=== PATIENT | male | born 1975 | race Hispanic/Latino ===

== ENCOUNTER 2023-03-18 09:43 | Inpatient (IN) | payer SELFPAY ==
[2023-03-18 10:17] LABS: #Basophils 0.1 thou/uL (0.0-0.2); #Eosinphils 0.3 thou/uL (0.0-0.7); #Monocytes 1.4 thou/uL (0.11-0.59); #Neutrophils 11.9 thou/uL (1.40-6.50); %Basophils 0.5 % (0.0-1.0); %Eosinophils 1.8 % (0.0-10.0); %Lymphocytes 9.6 % (21.0-51.0); %Neutrophils 78.6 % (42.0-75.0); Hemoglobin 11.6 g/dL (14.0-18.0); Mean Corpuscular HGB CONC 34.1 g/dL (32.0-36.0); Mean Corpuscular Hemoglobin 32.4 pg (27.0-31.0); Mean Platelet Volume 8.8 fL (7.4-10.4); Platelet Count 376 10x3/uL (130-400); RBC Distribution Width 11.7 % (11.5-14.5); Red Blood Cell (RBC) Count 3.58 mill/uL (4.70-6.10); White Blood Cell (WBC) Count 15.2 10x3/uL (4.8-10.8)
[2023-03-18] MEDS ORDERED: Acetaminophen 500 MG TAB ONE (10:28)
[2023-03-18 10:44] LABS: ALT (SGPT) 15 U/L (8-55); AST (SGOT) 13 U/L (5-34); Albumin 3.6 g/dL (3.5-5.0); Alkaline Phosphatase 79 U/L (40-110); Anion Gap 12 mmol/L (10-20); BUN (Urea Nitrogen) 8 mg/dL (8.9-20.6); Bilirubin, Total 0.5 mg/dL (0.2-1.2); Calc. Creatinine Clearance 0 mL/min (70-130); Calcium 9.4 mg/dL (7.8-10.44); Carbon Dioxide 25 mmol/L (22-29); Chloride 103 mmol/L (98-107); Estimated GFR 107; Globulin 4.2 g/dL (2.4-3.5); Glucose 205 mg/dL (70-105); Lipase 15 U/L (8-78); Potassium 4.4 mmol/L (3.5-5.1); Protein, Total 7.8 g/dL (6.0-8.3); Sodium 136 mmol/L (136-145)
[2023-03-18] MEDS ORDERED: cefTRIAXone (ROCEPHIN) 2 GM VIAL ONE (12:33)
[2023-03-18 12:49] LABS: HIV (1/2) Antibody/Antigen Non-Reactive (NonReactive); HIV 1/2 INDEX 0.11 S/CO (<1.00)
[2023-03-18] MEDS ORDERED: Ondansetron PF 4 MG/2 ML Vial IVP PRN (13:13)
[2023-03-18] MEDS ORDERED: Ondansetron ODT 4 MG TAB PO PRN (13:13)
[2023-03-18] MEDS ORDERED: Dextrose 50% Abboject 50 ML SYRINGE ONE (13:29)
[2023-03-18] MEDS ORDERED: Azithromycin 500 MG in Sodium Chloride 0.9% 250 ML 250 ML IVPB SCH (14:00)
[2023-03-18] MEDS ORDERED: Azithromycin 500 MG VIAL ONE (14:22)
[2023-03-18] MEDS ORDERED: Iopamidol-370 76% 500 ML MDV (1 ML CHARGE) ONE (15:00)
[2023-03-18] MEDS: Sodium Chloride 0.9% 1,000 ML IV SCH (15:45)
[2023-03-18 15:59] LABS: SARS-CoV-2 NAA Rapid Test Not Detected (NotDetected)
[2023-03-18 16:39] VITALS: BMI 30.4
[2023-03-19] MEDS: Sodium Chloride 0.9% 1,000 ML IV SCH ×2 (02:35→14:26)
[2023-03-19 06:50] LABS: #Basophils 0.1 thou/uL (0.0-0.2); #Eosinphils 0.2 thou/uL (0.0-0.7); #Monocytes 1.2 thou/uL (0.11-0.59); #Neutrophils 10.5 thou/uL (1.40-6.50); %Basophils 0.5 % (0.0-1.0); %Eosinophils 1.7 % (0.0-10.0); %Lymphocytes 12.5 % (21.0-51.0); %Monocytes 8.5 % (0.0-10.0); %Neutrophils 76.2 % (42.0-75.0); Hemoglobin 12.4 g/dL (14.0-18.0); Mean Corpuscular HGB CONC 32.7 g/dL (32.0-36.0); Mean Corpuscular Hemoglobin 31.5 pg (27.0-31.0); Mean Corpuscular Volume 96.2 fl (78.0-98.0); Mean Platelet Volume 8.8 fL (7.4-10.4); Platelet Count 451 10x3/uL (130-400); RBC Distribution Width 11.5 % (11.5-14.5); Red Blood Cell (RBC) Count 3.94 mill/uL (4.70-6.10); White Blood Cell (WBC) Count 13.8 10x3/uL (4.8-10.8)
[2023-03-19 07:22] LABS: Anion Gap 14 mmol/L (10-20); BUN (Urea Nitrogen) 7 mg/dL (8.9-20.6); Calc. Creatinine Clearance 134 mL/min (70-130); Calcium 9.3 mg/dL (7.8-10.44); Carbon Dioxide 23 mmol/L (22-29); Chloride 103 mmol/L (98-107); Estimated GFR 108; Glucose 220 mg/dL (70-105); Potassium 3.9 mmol/L (3.5-5.1); Sodium 136 mmol/L (136-145)
[2023-03-19] MEDS: Lisinopril 10 MG TAB PO SCH (07:50)
[2023-03-19] MEDS: metFORMIN 500 MG TAB PO SCH (07:50)
[2023-03-19] MEDS: Cholecalciferol 1,000 UNITS (25 MCG) TAB PO SCH (07:50)
[2023-03-19] MEDS: Atorvastatin Calcium 20 MG TAB PO SCH (07:51)
[2023-03-19] MEDS ORDERED: Insulin Glargine 30 UNITS/0.3 ML VIAL SC SCH (10:00)
[2023-03-19] MEDS: cefTRIAXone\\ROCEPHIN 1 GM in Sodium Chloride 0.9% 100 ML IVPB SCH (12:48)
[2023-03-19] MEDS: Azithromycin 500 MG in Sodium Chloride 0.9% 250 ML 250 ML IVPB SCH (14:25)
[2023-03-19] MEDS ORDERED: Glucagon 1 MG/ML KIT IM PRN (17:15)
[2023-03-19] MEDS ORDERED: HumaLOG 300 UNITS/3 ML VIAL SC PRN (17:15)
[2023-03-19] MEDS ORDERED: Dextrose 50% Abboject 50 ML SYRINGE IVP PRN (17:15)
[2023-03-19] MEDS ORDERED: Dextrose 5% in Water 1,000 ML IV PRN (17:15)
[2023-03-19] MEDS: HumaLOG 300 UNITS/3 ML VIAL SC PRN (17:28)
[2023-03-19] MEDS: Acetaminophen 325 MG TAB PO PRN (20:21)
[2023-03-19] MEDS ORDERED: Ibuprofen 600 MG TAB PO PRN (22:51)
[2023-03-20] MEDS: Sodium Chloride 0.9% 1,000 ML IV SCH (04:19)
[2023-03-20] MEDS: Acetaminophen 325 MG TAB PO PRN ×2 (04:19→11:46)
[2023-03-20] MEDS: Insulin Glargine 30 UNITS/0.3 ML VIAL SC SCH (08:27)
[2023-03-20] MEDS: Lisinopril 10 MG TAB PO SCH (08:28)
[2023-03-20] MEDS: glyBURIDE 5 MG TAB PO SCH (08:29)
[2023-03-20] MEDS: Atorvastatin Calcium 20 MG TAB PO SCH (08:29)
[2023-03-20] MEDS: metFORMIN 500 MG TAB PO SCH (08:29)
[2023-03-20] MEDS: Cholecalciferol 1,000 UNITS (25 MCG) TAB PO SCH (08:30)
[2023-03-20] MEDS: HumaLOG 300 UNITS/3 ML VIAL SC PRN (11:47)
[2023-03-20] MEDS: cefTRIAXone\\ROCEPHIN 1 GM in Sodium Chloride 0.9% 100 ML IVPB SCH (11:48)
[2023-03-20 12:57] LABS: #Basophils 0.1 thou/uL (0.0-0.2); #Eosinphils 0.2 thou/uL (0.0-0.7); %Basophils 0.5 % (0.0-1.0); %Eosinophils 1.9 % (0.0-10.0); %Lymphocytes 11.8 % (21.0-51.0); %Monocytes 8.8 % (0.0-10.0); %Neutrophils 76.5 % (42.0-75.0); Hemoglobin 11.3 g/dL (14.0-18.0); Mean Corpuscular HGB CONC 33.5 g/dL (32.0-36.0); Mean Corpuscular Hemoglobin 32.1 pg (27.0-31.0); Mean Corpuscular Volume 95.7 fl (78.0-98.0); Mean Platelet Volume 8.6 fL (7.4-10.4); Platelet Count 418 10x3/uL (130-400); RBC Distribution Width 11.7 % (11.5-14.5); Red Blood Cell (RBC) Count 3.52 mill/uL (4.70-6.10); White Blood Cell (WBC) Count 11.8 10x3/uL (4.8-10.8)
[2023-03-20 13:06] LABS: Hemoglobin A1c 7.7 % (4.0-6.0)
[2023-03-20] MEDS: Azithromycin 500 MG in Sodium Chloride 0.9% 250 ML 250 ML IVPB SCH (13:10)
[2023-03-20 13:19] LABS: Anion Gap 14 mmol/L (10-20); BUN (Urea Nitrogen) 9 mg/dL (8.9-20.6); Calc. Creatinine Clearance 139 mL/min (70-130); Calcium 9.2 mg/dL (7.8-10.44); Carbon Dioxide 21 mmol/L (22-29); Chloride 104 mmol/L (98-107); Estimated GFR 109; Glucose 156 mg/dL (70-105); Potassium 3.5 mmol/L (3.5-5.1); Sodium 135 mmol/L (136-145)
[2023-03-21] MEDS: Acetaminophen 325 MG TAB PO PRN ×2 (05:16→20:25)
[2023-03-21 07:00] LABS: #Eosinphils 0.2 thou/uL (0.0-0.7); #Neutrophils 8.1 thou/uL (1.40-6.50); %Basophils 0.4 % (0.0-1.0); %Eosinophils 1.5 % (0.0-10.0); %Lymphocytes 10.8 % (21.0-51.0); %Monocytes 9.1 % (0.0-10.0); %Neutrophils 77.7 % (42.0-75.0); Mean Corpuscular HGB CONC 33.3 g/dL (32.0-36.0); Mean Platelet Volume 8.5 fL (7.4-10.4); Platelet Count 442 10x3/uL (130-400); RBC Distribution Width 11.6 % (11.5-14.5); Red Blood Cell (RBC) Count 3.55 mill/uL (4.70-6.10); White Blood Cell (WBC) Count 10.5 10x3/uL (4.8-10.8)
[2023-03-21] MEDS: metFORMIN 500 MG TAB PO SCH (08:58)
[2023-03-21] MEDS: Insulin Glargine 30 UNITS/0.3 ML VIAL SC SCH (08:58)
[2023-03-21] MEDS: Lisinopril 10 MG TAB PO SCH (08:58)
[2023-03-21] MEDS: glyBURIDE 5 MG TAB PO SCH (08:58)
[2023-03-21] MEDS: Atorvastatin Calcium 20 MG TAB PO SCH (08:58)
[2023-03-21] MEDS: Cholecalciferol 1,000 UNITS (25 MCG) TAB PO SCH (08:58)
[2023-03-21] MEDS: cefTRIAXone\\ROCEPHIN 1 GM in Sodium Chloride 0.9% 100 ML IVPB SCH (12:52)
[2023-03-21] MEDS: Azithromycin 500 MG in Sodium Chloride 0.9% 250 ML 250 ML IVPB SCH (14:46)
[2023-03-22] MEDS: Acetaminophen 325 MG TAB PO PRN (04:43)
[2023-03-22 07:09] LABS: #Basophils 0.1 thou/uL (0.0-0.2); #Eosinphils 0.1 thou/uL (0.0-0.7); #Monocytes 1.3 thou/uL (0.11-0.59); #Neutrophils 8.1 thou/uL (1.40-6.50); %Basophils 0.7 % (0.0-1.0); %Eosinophils 1.1 % (0.0-10.0); %Lymphocytes 12.1 % (21.0-51.0); %Monocytes 11.9 % (0.0-10.0); %Neutrophils 73.7 % (42.0-75.0); Hemoglobin 11.3 g/dL (14.0-18.0); Mean Corpuscular HGB CONC 33.7 g/dL (32.0-36.0); Mean Corpuscular Volume 94.9 fl (78.0-98.0); Mean Platelet Volume 8.5 fL (7.4-10.4); Platelet Count 440 10x3/uL (130-400); RBC Distribution Width 11.7 % (11.5-14.5); Red Blood Cell (RBC) Count 3.53 mill/uL (4.70-6.10); White Blood Cell (WBC) Count 10.9 10x3/uL (4.8-10.8)
[2023-03-22] MEDS: glyBURIDE 5 MG TAB PO SCH (08:58)
[2023-03-22] MEDS: Cholecalciferol 1,000 UNITS (25 MCG) TAB PO SCH (08:59)
[2023-03-22] MEDS: Atorvastatin Calcium 20 MG TAB PO SCH (08:59)
[2023-03-22] MEDS: metFORMIN 500 MG TAB PO SCH (08:59)
[2023-03-22] MEDS: Insulin Glargine 30 UNITS/0.3 ML VIAL SC SCH (08:59)
[2023-03-22] MEDS: Lisinopril 10 MG TAB PO SCH (08:59)
[2023-03-22] MEDS: cefTRIAXone\\ROCEPHIN 1 GM in Sodium Chloride 0.9% 100 ML IVPB SCH (12:14)
[2023-03-22 13:26] VITALS: BP 139/88; TEMP 98.8
[2023-03-22] MEDS: Azithromycin 500 MG in Sodium Chloride 0.9% 250 ML 250 ML IVPB SCH (14:15)
== END 2023-03-22 18:09 | disposition home or self-care (01) | DRG 194 ==
LOC: ERS 09:43 → OBSVTOIN 13:12 → T4-A 13:12
PROVIDERS: ADMIT Internal Medicine; ATTEND Family Medicine
PROC: 8E0ZXY6 Isolation (ICD-10-PCS; principal; 2023-03-18)
DX: J18.9 Pneumonia, unspecified organism (principal); J90 Pleural effusion, not elsewhere classified; I10 Essential (primary) hypertension; E11.9 Type 2 diabetes mellitus without complications; E78.5 Hyperlipidemia, unspecified; D64.9 Anemia, unspecified; Z20.822 Contact with and (suspected) exposure to COVID-19; Z79.4 Long term (current) use of insulin; Z79.84 Long term (current) use of oral hypoglycemic drugs; Z79.899 Other long term (current) drug therapy
CPT/HCPCS: 36415; 36416; 71045; 71275; 80048; 80053; 83036; 83605; 83690; 84484; 85025; 87040; 87116; 87206; 87389; 93005; 94760; 96361; 96365; 96366; 96367; 96372; 96376; G0378; J0456; J0696; J1650; J1815; J3490; J7050; J7999; Q9967; U0002

== ENCOUNTER 2023-04-28 15:36 | Inpatient (IN) | payer SELFPAY ==
[~2023-04-28 15:36] MED LIST: Iopamidol 370 76% 100 ML VIAL ONE
[2023-04-28 16:19] LABS: #Eosinphils 0.1 thou/uL (0.0-0.7); #Monocytes 1.2 thou/uL (0.11-0.59); #Neutrophils 7.6 thou/uL (1.40-6.50); %Basophils 0.4 % (0.0-1.0); %Eosinophils 0.9 % (0.0-10.0); %Lymphocytes 14.5 % (21.0-51.0); %Monocytes 11.4 % (0.0-10.0); %Neutrophils 72.2 % (42.0-75.0); Hemoglobin 9.6 g/dL (14.0-18.0); Mean Corpuscular HGB CONC 33.6 g/dL (32.0-36.0); Mean Corpuscular Hemoglobin 29.2 pg (27.0-31.0); Mean Corpuscular Volume 86.9 fl (78.0-98.0); Mean Platelet Volume 8.5 fL (7.4-10.4); Platelet Count 549 10x3/uL (130-400); RBC Distribution Width 12.7 % (11.5-14.5); Red Blood Cell (RBC) Count 3.29 mill/uL (4.70-6.10); White Blood Cell (WBC) Count 10.5 10x3/uL (4.8-10.8)
[2023-04-28 16:30] LABS: Bacteria/HPF None Seen HPF (None Seen); Bilirubin Negative (Negative); Blood, Urine Negative (Negative); CAUTI Indications for Culture Dysuria,urgency,freq; Clarity Clear (Clear); Glucose, Urine (Dipstick) Normal (Negative); Ketone, Urine Negative (Negative); Leukocyte Negative Leu/uL (Negative); Nitrite Negative (Negative); Protein, Urine (Dipstick) 30 mg/dL (Neg-Trace); RBC/HPF 0-3 HPF (0-3); Specific Gravity, Urine 1.012 (1.002-1.036); Squamous Epithelial None Seen HPF (0-3); Urobilinogen Normal mg/dL (Less than 2); WBC/HPF 0-3 HPF (0-3); pH, Urine 6.5 (5.0-9.0)
[2023-04-28 16:32] LABS: Urine Culture Reflex No No
[2023-04-28 16:46] LABS: ALT (SGPT) 25 U/L (8-55); AST (SGOT) 26 U/L (5-34); Albumin 3.4 g/dL (3.5-5.0); Alkaline Phosphatase 87 U/L (40-110); Anion Gap 16 mmol/L (10-20); BUN (Urea Nitrogen) 11 mg/dL (8.9-20.6); Bilirubin, Total 0.5 mg/dL (0.2-1.2); Calc. Creatinine Clearance 0 mL/min (70-130); Calcium 10.7 mg/dL (7.8-10.44); Carbon Dioxide 22 mmol/L (22-29); Chloride 96 mmol/L (98-107); Estimated GFR 86; Globulin 4.9 g/dL (2.4-3.5); Glucose 179 mg/dL (70-105); Potassium 4.6 mmol/L (3.5-5.1); Protein, Total 8.3 g/dL (6.0-8.3); Sodium 129 mmol/L (136-145)
[2023-04-28 16:56] LABS: SARS-CoV-2 NAA Rapid Test Not Detected (NotDetected)
[2023-04-28] MEDS ORDERED: Ampicillin/Sulbactam 3 GM in Sodium Chloride 0.9% 100 ML IVPB SCH (17:15)
[2023-04-28] MEDS ORDERED: Vancomycin 1.5 GRAM/300 ML BAG 1.5 GM in Premix Bag 1 BAG IVPB SCH (19:00)
[2023-04-28] MEDS ORDERED: Dextrose 50% Abboject 50 ML SYRINGE SLOW IVP PRN (19:19)
[2023-04-28] MEDS ORDERED: HumaLOG 300 UNITS/3 ML VIAL SC PRN ×2 (19:19)
[2023-04-28] MEDS ORDERED: Dextrose 5% in Water 1,000 ML IV PRN (19:19)
[2023-04-28] MEDS ORDERED: Ondansetron ODT 4 MG TAB PO PRN (19:19)
[2023-04-28] MEDS ORDERED: Glucagon 1 MG/ML KIT IM PRN (19:19)
[2023-04-28] MEDS ORDERED: Acetaminophen 650 MG Suppository PR PRN (19:19)
[2023-04-28 20:49] VITALS: BMI 32.0
[2023-04-28] MEDS: Sodium Chloride 0.9% 1,000 ML IV SCH (22:22)
[2023-04-28] MEDS: Acetaminophen 325 MG TAB PO PRN (22:30)
[2023-04-28] MEDS: Ondansetron PF 4 MG/2 ML Vial IVP PRN (22:30)
[2023-04-28] MEDS ORDERED: Piperacillin/Tazobactam 3.375 GM in Sodium Chloride 0.9% 100 ML IVPB SCH (23:00)
[2023-04-29] MEDS: Piperacillin/Tazobactam 3.375 GM in Sodium Chloride 0.9% 100 ML IVPB SCH ×3 (02:22→18:25)
[2023-04-29] MEDS ORDERED: Ondansetron PF 4 MG/2 ML Vial IVP SCH (03:15)
[2023-04-29] MEDS ORDERED: VANCOMYCIN 1.25 GM/250 ML BAG 1.25 GM in Premix Bag 1 BAG IVPB SCH (06:00)
[2023-04-29] MEDS: Acetaminophen 325 MG TAB PO PRN ×2 (06:18→21:43)
[2023-04-29 06:39] LABS: #Basophils 0.1 thou/uL (0.0-0.2); #Eosinphils 0.1 thou/uL (0.0-0.7); #Monocytes 1.2 thou/uL (0.11-0.59); #Neutrophils 8.4 thou/uL (1.40-6.50); %Basophils 0.4 % (0.0-1.0); %Lymphocytes 14.7 % (21.0-51.0); %Monocytes 10.6 % (0.0-10.0); %Neutrophils 72.7 % (42.0-75.0); Hemoglobin 9.2 g/dL (14.0-18.0); Mean Corpuscular HGB CONC 32.2 g/dL (32.0-36.0); Mean Corpuscular Hemoglobin 29.1 pg (27.0-31.0); Mean Platelet Volume 8.4 fL (7.4-10.4); Platelet Count 523 10x3/uL (130-400); RBC Distribution Width 12.8 % (11.5-14.5); Red Blood Cell (RBC) Count 3.16 mill/uL (4.70-6.10); White Blood Cell (WBC) Count 11.5 10x3/uL (4.8-10.8)
[2023-04-29 06:44] LABS: Mean Corpuscular Volume 90.5 fl (78.0-98.0)
[2023-04-29] MEDS: Vancomycin 1 GM in Premix Bag 1 BAG IVPB SCH ×2 (06:45→17:00)
[2023-04-29 07:04] LABS: Anion Gap 17 mmol/L (10-20); BUN (Urea Nitrogen) 9 mg/dL (8.9-20.6); Calc. Creatinine Clearance 109 mL/min (70-130); Calcium 9.2 mg/dL (7.8-10.44); Carbon Dioxide 23 mmol/L (22-29); Chloride 104 mmol/L (98-107); Estimated GFR 96; Glucose 156 mg/dL (70-105); Potassium 4.6 mmol/L (3.5-5.1); Sodium 139 mmol/L (136-145)
[2023-04-29] MEDS ORDERED: Morphine 2 MG/ML VIAL SLOW IVP SCH (09:15)
[2023-04-29] MEDS: Sodium Chloride 0.45% 1,000 ML IV SCH ×2 (09:34→18:05)
[2023-04-29] MEDS: Sodium Chloride 0.9% 1,000 ML IV SCH (09:40)
[2023-04-29 14:46] LABS: Sodium 138 mmol/L (136-145)
[2023-04-29] MEDS: Ondansetron PF 4 MG/2 ML Vial IVP PRN (21:33)
[2023-04-30] MEDS: Piperacillin/Tazobactam 3.375 GM in Sodium Chloride 0.9% 100 ML IVPB SCH ×3 (02:35→18:08)
[2023-04-30] MEDS: Ondansetron PF 4 MG/2 ML Vial IVP PRN (03:39)
[2023-04-30] MEDS: Sodium Chloride 0.45% 1,000 ML IV SCH ×2 (03:44→16:44)
[2023-04-30 06:15] LABS: #Basophils 0.1 thou/uL (0.0-0.2); #Eosinphils 0.2 thou/uL (0.0-0.7); #Monocytes 0.9 thou/uL (0.11-0.59); #Neutrophils 8.3 thou/uL (1.40-6.50); %Basophils 0.6 % (0.0-1.0); %Eosinophils 1.7 % (0.0-10.0); %Lymphocytes 10.7 % (21.0-51.0); %Monocytes 8.8 % (0.0-10.0); %Neutrophils 77.5 % (42.0-75.0); Hemoglobin 8.9 g/dL (14.0-18.0); Mean Corpuscular HGB CONC 32.4 g/dL (32.0-36.0); Mean Corpuscular Hemoglobin 28.9 pg (27.0-31.0); Mean Corpuscular Volume 89.3 fl (78.0-98.0); Mean Platelet Volume 8.3 fL (7.4-10.4); Platelet Count 490 10x3/uL (130-400); Red Blood Cell (RBC) Count 3.08 mill/uL (4.70-6.10); White Blood Cell (WBC) Count 10.7 10x3/uL (4.8-10.8)
[2023-04-30 06:35] LABS: Vancomycin, Trough 9.4 ug/mL
[2023-04-30 06:37] LABS: Anion Gap 13 mmol/L (10-20); BUN (Urea Nitrogen) 6 mg/dL (8.9-20.6); Calc. Creatinine Clearance 131 mL/min (70-130); Calcium 8.7 mg/dL (7.8-10.44); Carbon Dioxide 21 mmol/L (22-29); Chloride 106 mmol/L (98-107); Estimated GFR 110; Glucose 149 mg/dL (70-105); Potassium 4.1 mmol/L (3.5-5.1); Sodium 136 mmol/L (136-145)
[2023-04-30] MEDS: Vancomycin 1 GM in Premix Bag 1 BAG IVPB SCH (07:09)
[2023-04-30] MEDS: Atorvastatin Calcium 20 MG TAB PO SCH (08:26)
[2023-04-30] MEDS: Vancomycin 1.5 GRAM/300 ML BAG 1.5 GM in Premix Bag 1 BAG IVPB SCH ×2 (08:26→22:21)
[2023-04-30] MEDS: Acetaminophen 325 MG TAB PO PRN (16:43)
[2023-05-01] MEDS: Ondansetron PF 4 MG/2 ML Vial IVP PRN ×2 (01:16→18:44)
[2023-05-01] MEDS: Sodium Chloride 0.45% 1,000 ML IV SCH ×2 (01:23→08:29)
[2023-05-01] MEDS: Piperacillin/Tazobactam 3.375 GM in Sodium Chloride 0.9% 100 ML IVPB SCH ×2 (03:31→11:30)
[2023-05-01 07:27] LABS: #Basophils 0.1 thou/uL (0.0-0.2); #Eosinphils 0.1 thou/uL (0.0-0.7); #Monocytes 1.1 thou/uL (0.11-0.59); #Neutrophils 9.9 thou/uL (1.40-6.50); %Basophils 0.5 % (0.0-1.0); %Eosinophils 0.5 % (0.0-10.0); %Lymphocytes 13.6 % (21.0-51.0); %Monocytes 8.2 % (0.0-10.0); %Neutrophils 76.3 % (42.0-75.0); Mean Corpuscular HGB CONC 31.9 g/dL (32.0-36.0); Mean Corpuscular Hemoglobin 28.5 pg (27.0-31.0); Mean Corpuscular Volume 89.2 fl (78.0-98.0); Mean Platelet Volume 8.2 fL (7.4-10.4); Platelet Count 501 10x3/uL (130-400); RBC Distribution Width 13.2 % (11.5-14.5); Red Blood Cell (RBC) Count 3.16 mill/uL (4.70-6.10); White Blood Cell (WBC) Count 12.9 10x3/uL (4.8-10.8)
[2023-05-01 07:58] LABS: Anion Gap 12 mmol/L (10-20); BUN (Urea Nitrogen) 7 mg/dL (8.9-20.6); Calc. Creatinine Clearance 114 mL/min (70-130); Carbon Dioxide 25 mmol/L (22-29); Chloride 104 mmol/L (98-107); Estimated GFR 101; Glucose 150 mg/dL (70-105); Potassium 3.8 mmol/L (3.5-5.1); Sodium 137 mmol/L (136-145)
[2023-05-01] MEDS: glyBURIDE 5 MG TAB PO SCH ×2 (08:24→08:33)
[2023-05-01] MEDS: Atorvastatin Calcium 20 MG TAB PO SCH ×2 (08:25→08:34)
[2023-05-01] MEDS: Lisinopril 10 MG TAB PO SCH ×2 (08:25→08:34)
[2023-05-01] MEDS: Vancomycin 1.5 GRAM/300 ML BAG 1.5 GM in Premix Bag 1 BAG IVPB SCH (08:25)
[2023-05-01] MEDS ORDERED: Lisinopril 10 MG TAB PO SCH (09:00)
[2023-05-01] MEDS ORDERED: Amoxicillin/Potassium Clav 875 MG TAB PO SCH (12:00)
[2023-05-01] MEDS ORDERED: guaiFENesin/DM ER PO SCH (13:00)
[2023-05-01] MEDS: guaiFENesin/DM ER PO SCH (20:19)
[2023-05-01] MEDS: Amoxicillin/Potassium Clav 875 MG TAB PO SCH (20:19)
[2023-05-01] MEDS: Acetaminophen 325 MG TAB PO PRN (20:19)
[2023-05-01] MEDS ORDERED: Sodium Chloride 0.9% 500 ML IV SCH ×2 (20:45→22:15)
[2023-05-01] MEDS: Benzonatate 100 MG CAP PO PRN (20:51)
[2023-05-01 21:21] LABS: #Basophils 0.1 thou/uL (0.0-0.2); #Eosinphils 0.1 thou/uL (0.0-0.7); #Neutrophils 12.3 thou/uL (1.40-6.50); %Basophils 0.4 % (0.0-1.0); %Eosinophils 0.3 % (0.0-10.0); %Lymphocytes 9.7 % (21.0-51.0); %Monocytes 6.7 % (0.0-10.0); %Neutrophils 82.3 % (42.0-75.0); Hemoglobin 8.2 g/dL (14.0-18.0); Mean Corpuscular HGB CONC 32.9 g/dL (32.0-36.0); Mean Corpuscular Hemoglobin 29.2 pg (27.0-31.0); Mean Corpuscular Volume 88.6 fl (78.0-98.0); Mean Platelet Volume 8.3 fL (7.4-10.4); Platelet Count 465 10x3/uL (130-400); RBC Distribution Width 13.1 % (11.5-14.5); Red Blood Cell (RBC) Count 2.81 mill/uL (4.70-6.10)
[2023-05-01 21:44] LABS: Anion Gap 14 mmol/L (10-20); BUN (Urea Nitrogen) 9 mg/dL (8.9-20.6); Calc. Creatinine Clearance 109 mL/min (70-130); Calcium 8.4 mg/dL (7.8-10.44); Carbon Dioxide 20 mmol/L (22-29); Chloride 101 mmol/L (98-107); Estimated GFR 96; Glucose 229 mg/dL (70-105); Potassium 4.3 mmol/L (3.5-5.1); Sodium 131 mmol/L (136-145)
[2023-05-01 21:49] LABS: Troponin I Less than 0.010 ng/mL (< 0.028)
[2023-05-01 22:40] LABS: Magnesium 1.2 mg/dL (1.6-2.6)
[2023-05-01] MEDS ORDERED: Sodium Chloride 0.9% 1,000 ML IV SCH (22:45)
[2023-05-02 01:12] LABS: Troponin I Less than 0.010 ng/mL (< 0.028)
[2023-05-02] MEDS: Ondansetron PF 4 MG/2 ML Vial IVP PRN ×2 (03:33→14:36)
[2023-05-02] MEDS: Benzonatate 100 MG CAP PO PRN ×3 (05:38→20:24)
[2023-05-02 06:39] LABS: #Basophils 0.1 thou/uL (0.0-0.2); #Eosinphils 0.1 thou/uL (0.0-0.7); #Monocytes 1.1 thou/uL (0.11-0.59); #Neutrophils 9.4 thou/uL (1.40-6.50); %Basophils 0.6 % (0.0-1.0); %Eosinophils 0.6 % (0.0-10.0); %Lymphocytes 14.8 % (21.0-51.0); %Monocytes 8.5 % (0.0-10.0); %Neutrophils 74.5 % (42.0-75.0); Hemoglobin 9.4 g/dL (14.0-18.0); Mean Corpuscular HGB CONC 32.5 g/dL (32.0-36.0); Mean Corpuscular Hemoglobin 29.6 pg (27.0-31.0); Mean Corpuscular Volume 90.9 fl (78.0-98.0); Mean Platelet Volume 8.6 fL (7.4-10.4); Platelet Count 550 10x3/uL (130-400); RBC Distribution Width 13.2 % (11.5-14.5); Red Blood Cell (RBC) Count 3.18 mill/uL (4.70-6.10); White Blood Cell (WBC) Count 12.5 10x3/uL (4.8-10.8)
[2023-05-02] MEDS: glyBURIDE 5 MG TAB PO SCH (08:02)
[2023-05-02] MEDS: Lisinopril 10 MG TAB PO SCH (08:03)
[2023-05-02] MEDS: Atorvastatin Calcium 20 MG TAB PO SCH (08:03)
[2023-05-02] MEDS: guaiFENesin/DM ER PO SCH ×2 (08:09→20:24)
[2023-05-02] MEDS: Amoxicillin/Potassium Clav 875 MG TAB PO SCH ×2 (08:09→20:23)
[2023-05-03] MEDS: Lisinopril 10 MG TAB PO SCH (08:13)
[2023-05-03] MEDS: glyBURIDE 5 MG TAB PO SCH (08:13)
[2023-05-03] MEDS: Amoxicillin/Potassium Clav 875 MG TAB PO SCH (08:13)
[2023-05-03] MEDS: Atorvastatin Calcium 20 MG TAB PO SCH (08:13)
[2023-05-03] MEDS: guaiFENesin/DM ER PO SCH (08:14)
[2023-05-03 13:13] VITALS: BP 162/94; TEMP 98.2
== END 2023-05-03 13:14 | disposition home or self-care (01) | DRG 178 ==
LOC: ERS 15:36 → T4-A 18:32
PROVIDERS: ADMIT Student in an Organized Health Care Education/Training Program; ATTEND Family Medicine
DX: J85.1 Abscess of lung with pneumonia (principal); E87.1 Hypo-osmolality and hyponatremia; E11.9 Type 2 diabetes mellitus without complications; E78.5 Hyperlipidemia, unspecified; D64.9 Anemia, unspecified; E83.52 Hypercalcemia; Z20.822 Contact with and (suspected) exposure to COVID-19; I10 Essential (primary) hypertension; D75.839 Thrombocytosis, unspecified; Z82.49 Family history of ischemic heart disease and other diseases of the circulatory system; Z79.84 Long term (current) use of oral hypoglycemic drugs; Z79.899 Other long term (current) drug therapy; Z79.4 Long term (current) use of insulin
CPT/HCPCS: 36415; 36416; 71045; 71260; 80048; 80053; 80202; 81001; 83605; 83735; 84145; 84484; 85025; 87040; 87081; 93005; 93010; 96365; 96367; J0295; J1815; J2272; J2405; J2543; J3370; J3370-JW; J3490; J7030; J7050; Q0162; Q9967

== ENCOUNTER 2023-11-04 08:53 | Outpatient (CLI) | payer OTHER | END 2023-11-04 08:54 | disposition home or self-care (01) | LOC: RAD 08:53 | PROVIDERS: ATTEND Internal Medicine | DX: J85.2 Abscess of lung without pneumonia (principal) | CPT/HCPCS: 71046 ==

== ENCOUNTER 2025-07-23 17:50 | Emergency (ER) | payer OTHER ==
[2025-07-23] MEDS ORDERED: Ketorolac Tromethamine 30 MG (1 mL) VIAL ONE (18:27)
[2025-07-23] MEDS ORDERED: Ondansetron PF 4 MG/2 ML Vial ONE (18:27)
[2025-07-23 18:52] LABS: #Basophils 0.09 10x3/uL (0.0-0.2); #Eosinophils 0.36 10x3/uL (0.0-0.7); #Monocytes 0.80 10x3/uL (0.11-0.59); #Neutrophils 3.89 10x3/uL (1.40-6.50); %Basophils 1.2 % (0.0-1.0); %Eosinophils 4.9 % (0.0-10.0); %Lymphocytes 29.7 % (21.0-51.0); %Monocytes 10.9 % (0.0-10.0); %Neutrophils 52.9 % (42.0-75.0); Hematocrit 34.0 % (42.0-52.0); Hemoglobin 11.4 g/dL (14.0-18.0); Mean Corpuscular Hemoglobin 32.2 pg (27.0-31.0); Mean Corpuscular Volume 96.0 fL (78.0-98.0); Platelet Count 265 10x3/uL (130-400); Red Blood Cell (RBC) Count 3.54 mill/uL (4.70-6.10); White Blood Cell (WBC) Count 7.35 10x3/uL (4.8-10.8)
[2025-07-23 19:02] LABS: Bacteria/HPF None Seen HPF (None Seen); CAUTI Indications for Culture Pelvic or flank pain; Glucose, Urine (Dipstick) Normal (Negative); Leukocyte Negative Leu/uL (Negative); Protein, Urine (Dipstick) Negative (Neg-Trace); RBC/HPF 0-3 HPF (0-3); Specific Gravity, Urine 1.005 (1.002-1.036); WBC/HPF 0-3 HPF (0-3)
[2025-07-23 19:06] LABS: Urine Culture Reflex No No
[2025-07-23 19:14] LABS: ALT (SGPT) 33 U/L (Less than 45); AST (SGOT) 31 U/L (11-34); Albumin 4.3 g/dL (3.1-4.5); Alkaline Phosphatase 71 U/L (40-110); Anion Gap 11 mmol/L (10-20); BUN (Urea Nitrogen) 12 mg/dL (8.9-20.6); Bilirubin, Total 0.4 mg/dL (0.3-1.2); Calc. Creatinine Clearance 0 mL/min (70-130); Calcium 9.3 mg/dL (7.8-10.44); Carbon Dioxide 29 mmol/L (22-29); Chloride 104 mmol/L (98-107); Globulin 3.1 g/dL (2.4-3.5); Glucose 121 mg/dL (70-105); Lipase 30 U/L (8-78); Potassium 3.7 mmol/L (3.5-5.1); Sodium 140 mmol/L (136-145)
== END 2025-07-23 19:47 | disposition home or self-care (01) ==
LOC: ERS 17:50
DX: S39.012A Strain of muscle, fascia and tendon of lower back, initial encounter (principal); E11.9 Type 2 diabetes mellitus without complications; I10 Essential (primary) hypertension; X58.XXXA Exposure to other specified factors, initial encounter
CPT/HCPCS: 74176; 80053; 81001; 83690; 85025; 96374; 96375; J1885; J2270